=== PATIENT | female | born 1995 ===

== ENCOUNTER 2017-07-03 08:23 | Emergency (ER) | payer OTHER ==
--- NOTE | 2017-07-03 11:56 | OBHP ---
Datetime: 07/03/2017 08:57 IP Adm Impression: , intrauterine ; No Active Labor IP Admit Plan: Observation/Evaluation Admit Comment, IP Provider: with IUP at 34wks presents here today with Maternal discomfort and pelvic pressure. Feels good movements but denies LOF and VB. PNC at [place], [place] with uncompl icated course. Denies dysuria, frequency and scanty urination. TOCO- none, FHR- Category 1 , Cx- Closed/posterior. Assessment IUP at 34wks Maaternal Discomfort. Plan: NST reactive D/C Home F/U with OB Doctor in 1 week FHR - Baseline A Provider: 145 Contraction Comments Provider: none EGA AdmitDate IP: 84.4 Vital Signs Provider: Reviewed IP Chief Complaint: Maternal discomfort NICHD Variability Prov Fetus A: Moderate 6-25bpm NICHD Accel Fetus A IP Provider: [id number] FHR Category Provider Fetus A: Category I NICHD Decel Fetus A IP Provider: None Dilatation, Provider: 0 Effacement, Provider: 0 Station, Provider: -3
[2017-07-03 18:02] VITALS: BP 100/65; PULSE 93; RESP 17; TEMP 98.7; O2SAT 98
== END 2017-07-03 10:00 | disposition home or self-care (01) ==
LOC: H.EROB2 08:23
DX: O26.93 Pregnancy related conditions, unspecified, third trimester (principal); R10.2 Pelvic and perineal pain; O47.03 False labor before 37 completed weeks of gestation, third trimester; Z3A.32 32 weeks gestation of pregnancy